=== PATIENT | female | born 2000 | race Two or more races ===

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

== ENCOUNTER 2023-10-21 19:54 | Emergency (ER) | payer MEDICAID, OTHER ==
[~2023-10-21] VITALS: Ht 165.1 cm; Wt 87.7 kg
[2023-10-21 20:27] VITALS: BP 141/83; PULSE 100; RESP 18; TEMP 99.4; O2SAT 98
[2023-10-21] MEDS ORDERED: PRED20TA2 PO (22:45)
[2023-10-21] MEDS: DexAMETHasone SOD PHOS 10MG/1ML VIAL INJ IM ONE (23:29)
== END 2023-10-22 00:40 | disposition home or self-care (01) ==
LOC: ER 19:54
DX: J06.9 Acute upper respiratory infection, unspecified (principal)
CPT/HCPCS: 71045; 96372; 99283; J1100